=== PATIENT | female | born 1960 | race Caucasian/White ===

== ENCOUNTER 2023-01-12 10:54 | Inpatient (IN) | payer OTHER ==
[2023-01-12] MEDS ORDERED: Docusate Sodium 100 MG Cap PO PRN ×2 (15:08→15:20)
[2023-01-12] MEDS ORDERED: Calcium Carbonate 500 MG Tab.Chew PO PRN (15:08)
[2023-01-12] MEDS ORDERED: Sodium Chloride 0.9% 10 ML Syringe FLUSH PRN (15:08)
[2023-01-12] MEDS ORDERED: Acetaminophen 325 MG Tab PO PRN (15:08)
[2023-01-12] MEDS ORDERED: Furosemide 20 MG Tab PO PRN (15:20)
[2023-01-12] MEDS ORDERED: Polyethylene Glycol 3350 Powder 17 GM Packet PO PRN (15:20)
[2023-01-12] MEDS ORDERED: Loratadine 10 MG Tab PO PRN (15:20)
[2023-01-12 15:33] LABS: BASOPHILS ABSOLUTE AUTO 0.01 10^3/uL (0.00-0.10); BASOPHILS PERCENT AUTO 0.2 % (0.0-1.0); EOSINOPHILS ABSOLUTE AUTO 0.09 10^3/uL (0.10-0.30); EOSINOPHILS PERCENT AUTO 1.7 % (1.0-3.0); HEMATOCRIT 33.6 % (37.0-47.0); HEMOGLOBIN 11.1 g/dL (12.0-16.0); IMMATURE GRAN ABSOLUTE AUTO 0.01 10^3/uL (0.00-0.50); IMMATURE GRAN PERCENT AUTO 0.2 % (0.0-5.0); LYMPHOCYTES ABSOLUTE AUTO 0.63 10^3/uL (1.00-4.00); MEAN CORPUSCULAR HEMOGLOBIN 29.8 pg (27.0-31.0); MEAN CORPUSCULAR VOLUME 90.1 fL (82.0-92.0); MEAN PLATELET VOLUME 10.3 fL (7.4-10.4); MONOCYTES PERCENT AUTO 5.7 % (2.0-8.0); NEUTROPHILS ABSOLUTE AUTO 4.21 10^3/uL (2.50-7.00); NEUTROPHILS PERCENT AUTO 80.2 % (50.0-70.0); PLATELET COUNT,PLT 234 10^3/uL (150-400); RED BLOOD CELL COUNT 3.73 10^6/uL (3.80-5.50); RED CELL DISTRIBUTION WIDTH 13.2 % (11.5-14.5); WHITE BLOOD CELL COUNT,WBC 5.25 10^3/uL (5.00-10.00)
[2023-01-12] MEDS ORDERED: Carbidopa/Levodopa 25-100 MG Tab.ER PO PRN (15:37)
[2023-01-12] MEDS ORDERED: Acetaminophen 500 MG Tab PO PRN (15:39)
[2023-01-12 15:50] LABS: ALBUMIN 2.88 g/dL (3.40-5.00); ALKALINE PHOSPHATASE 120 U/L (46-116); ANION GAP 9.7 mmol/L (5-15); ASPARTATE AMNIOTRANSFERASE,AST 12 U/L (15-37); BILIRUBIN TOTAL 0.9 mg/dL (0.2-1.0); BLOOD UREA NITROGEN,BUN 7 mg/dL (7-18); CALCIUM 8.1 mg/dL (8.7-10.3); CARBON DIOXIDE,CO2 32.3 mmol/L (21.0-32.0); CHLORIDE,CL 98 mmol/L (98-107); EST CRCL DRUG DOSING (CG) 82.72 mL/min; GLUCOSE RANDOM 95 mg/dL (70-140); MAGNESIUM 1.8 mg/dL (1.8-2.4); PROTEIN TOTAL,TP 6.4 g/dL (6.4-8.2); SODIUM,NA 136 mmol/L (136-145)
[2023-01-12 16:00] LABS: ALANINE AMINOTRANSFERASE,ALT < 6 U/L (14-63); ESTIMATED GFR 105 mL/min (>=60)
[2023-01-12] MEDS: Carbidopa/Levodopa 25-100 MG Tab PO SCH ×3 (16:12→21:54)
[2023-01-12] MEDS ORDERED: Iopamidol 755 Mg/ML 100 ML Bottle IV ONE (19:49)
[2023-01-12] MEDS ORDERED: Sodium Chloride 0.9% 100 ML IV SCH (20:00)
[2023-01-12 20:05] LABS: B-TYPE NATRIURETIC PEPTIDE,BNP 67 pg/mL (0-100)
[2023-01-12] MEDS: PEG 400/Hypromellose/Glycerin 15 ML Bottle EYEBOTH SCH (21:07)
[2023-01-12] MEDS: Enoxaparin 40 MG/0.4 ML Syringe SUBCUT SCH (21:07)
[2023-01-12] MEDS: QUEtiapine 25 MG Tab PO SCH (21:07)
[2023-01-12] MEDS: Sennosides/Docusate Sodium 50-8.6 MG Tab PO SCH (21:07)
[2023-01-12] MEDS: Carbidopa/Levodopa 25-100 MG Tab.ER PO SCH (21:08)
[2023-01-13] MEDS: Levothyroxine 100 MCG Tab PO SCH ×2 (05:58→06:35)
[2023-01-13] MEDS: Donepezil 10 MG Tab PO SCH (08:53)
[2023-01-13] MEDS: Cholecalciferol (Vitamin D3) 25 MCG Tab PO SCH (08:53)
[2023-01-13] MEDS: Calcium Citrate/Vitamin D3 315 MG-250 Unit Tab PO SCH (08:53)
[2023-01-13] MEDS: PARoxetine 20 MG Tab PO SCH (08:53)
[2023-01-13] MEDS: Sennosides/Docusate Sodium 50-8.6 MG Tab PO SCH ×2 (08:53→20:53)
[2023-01-13] MEDS: Carbidopa/Levodopa 25-100 MG Tab PO SCH ×5 (08:53→21:36)
[2023-01-13] MEDS: PEG 400/Hypromellose/Glycerin 15 ML Bottle EYEBOTH SCH ×3 (08:55→20:54)
[2023-01-13] MEDS ORDERED: Metoprolol Succinate 25 MG Tab.ER PO SCH (09:00)
[2023-01-13] MEDS ORDERED: Aspirin 325 MG Tab.EC PO SCH (09:00)
[2023-01-13] MEDS: Ondansetron 4 MG Tab.DIS PO PRN (12:56)
[2023-01-13] MEDS: QUEtiapine 25 MG Tab PO SCH ×2 (14:59→20:53)
[2023-01-13] MEDS: Carbidopa/Levodopa 25-100 MG Tab.ER PO SCH (20:53)
[2023-01-13] MEDS: Cyclobenzaprine 5 MG Tab PO PRN (20:54)
[2023-01-13] MEDS: Enoxaparin 40 MG/0.4 ML Syringe SUBCUT SCH (20:54)
[2023-01-14] MEDS: Carbidopa/Levodopa 25-100 MG Tab PO SCH ×5 (07:37→22:08)
[2023-01-14] MEDS: Levothyroxine 100 MCG Tab PO SCH (07:38)
[2023-01-14] MEDS ORDERED: KETOCONAZOLE TOP SCH (09:00)
[2023-01-14] MEDS ORDERED: amLODIPine 2.5 MG Tab PO SCH (09:00)
[2023-01-14] MEDS: PARoxetine 20 MG Tab PO SCH (09:17)
[2023-01-14] MEDS: Donepezil 10 MG Tab PO SCH (09:17)
[2023-01-14] MEDS: Cholecalciferol (Vitamin D3) 25 MCG Tab PO SCH (09:17)
[2023-01-14] MEDS: Calcium Citrate/Vitamin D3 315 MG-250 Unit Tab PO SCH (09:18)
[2023-01-14] MEDS: PEG 400/Hypromellose/Glycerin 15 ML Bottle EYEBOTH SCH ×3 (09:20→21:33)
[2023-01-14] MEDS: Sennosides/Docusate Sodium 50-8.6 MG Tab PO SCH ×2 (09:20→21:32)
[2023-01-14] MEDS: TRIAMCINOLONE ACETONIDE 0.025% TOP SCH (10:30)
[2023-01-14] MEDS: Ondansetron 4 MG Tab.DIS PO PRN ×2 (12:21→18:05)
[2023-01-14] MEDS: QUEtiapine 25 MG Tab PO SCH ×2 (15:20→21:32)
[2023-01-14] MEDS: KETOCONAZOLE TOP SCH (21:32)
[2023-01-14] MEDS: Carbidopa/Levodopa 25-100 MG Tab.ER PO SCH (21:32)
[2023-01-14] MEDS: Enoxaparin 40 MG/0.4 ML Syringe SUBCUT SCH (21:32)
[2023-01-15] MEDS: Carbidopa/Levodopa 25-100 MG Tab.ER PO PRN (03:55)
[2023-01-15] MEDS: Levothyroxine 100 MCG Tab PO SCH ×2 (06:06→06:36)
[2023-01-15] MEDS: Carbidopa/Levodopa 25-100 MG Tab PO SCH ×5 (07:26→21:42)
[2023-01-15] MEDS: Calcium Citrate/Vitamin D3 315 MG-250 Unit Tab PO SCH (08:40)
[2023-01-15] MEDS: PARoxetine 20 MG Tab PO SCH (08:40)
[2023-01-15] MEDS: Donepezil 10 MG Tab PO SCH (08:41)
[2023-01-15] MEDS: Sennosides/Docusate Sodium 50-8.6 MG Tab PO SCH ×2 (08:41→21:28)
[2023-01-15] MEDS: Cholecalciferol (Vitamin D3) 25 MCG Tab PO SCH (08:41)
[2023-01-15] MEDS: PEG 400/Hypromellose/Glycerin 15 ML Bottle EYEBOTH SCH ×3 (08:55→21:50)
[2023-01-15] MEDS: TRIAMCINOLONE ACETONIDE 0.025% TOP SCH (09:59)
[2023-01-15] MEDS: Ondansetron 4 MG Tab.DIS PO PRN (14:09)
[2023-01-15] MEDS: QUEtiapine 25 MG Tab PO SCH ×2 (15:13→21:42)
[2023-01-15] MEDS: Enoxaparin 40 MG/0.4 ML Syringe SUBCUT SCH (21:40)
[2023-01-15] MEDS: Carbidopa/Levodopa 25-100 MG Tab.ER PO SCH (21:43)
[2023-01-15] MEDS: KETOCONAZOLE TOP SCH (21:51)
[2023-01-16] MEDS: Levothyroxine 100 MCG Tab PO SCH (07:07)
[2023-01-16] MEDS: Carbidopa/Levodopa 25-100 MG Tab PO SCH ×5 (07:37→21:36)
[2023-01-16] MEDS: Calcium Citrate/Vitamin D3 315 MG-250 Unit Tab PO SCH (08:39)
[2023-01-16] MEDS: Sennosides/Docusate Sodium 50-8.6 MG Tab PO SCH ×2 (08:39→21:33)
[2023-01-16] MEDS: PARoxetine 20 MG Tab PO SCH (08:39)
[2023-01-16] MEDS: Donepezil 10 MG Tab PO SCH (08:40)
[2023-01-16] MEDS: Cholecalciferol (Vitamin D3) 25 MCG Tab PO SCH (08:41)
[2023-01-16] MEDS: PEG 400/Hypromellose/Glycerin 15 ML Bottle EYEBOTH SCH ×3 (08:51→21:33)
[2023-01-16] MEDS: TRIAMCINOLONE ACETONIDE 0.025% TOP SCH (08:51)
[2023-01-16] MEDS ORDERED: amLODIPine 2.5 MG Tab PO SCH (09:00)
[2023-01-16] MEDS: QUEtiapine 25 MG Tab PO SCH ×2 (15:39→21:36)
[2023-01-16] MEDS: Enoxaparin 40 MG/0.4 ML Syringe SUBCUT SCH (21:34)
[2023-01-16] MEDS: KETOCONAZOLE TOP SCH (21:34)
[2023-01-16] MEDS: Carbidopa/Levodopa 25-100 MG Tab.ER PO SCH (21:35)
[2023-01-17] MEDS: Carbidopa/Levodopa 25-100 MG Tab.ER PO PRN (03:18)
[2023-01-17] MEDS: Levothyroxine 100 MCG Tab PO SCH ×2 (06:04→06:29)
[2023-01-17] MEDS: Carbidopa/Levodopa 25-100 MG Tab PO SCH ×5 (07:33→21:13)
[2023-01-17] MEDS: TRIAMCINOLONE ACETONIDE 0.025% TOP SCH (08:25)
[2023-01-17] MEDS: PEG 400/Hypromellose/Glycerin 15 ML Bottle EYEBOTH SCH ×3 (08:25→21:12)
[2023-01-17] MEDS: Sennosides/Docusate Sodium 50-8.6 MG Tab PO SCH ×2 (09:13→20:46)
[2023-01-17] MEDS: Calcium Citrate/Vitamin D3 315 MG-250 Unit Tab PO SCH (09:13)
[2023-01-17] MEDS: PARoxetine 20 MG Tab PO SCH (09:14)
[2023-01-17] MEDS: Donepezil 10 MG Tab PO SCH (09:14)
[2023-01-17] MEDS: Cholecalciferol (Vitamin D3) 25 MCG Tab PO SCH (09:15)
[2023-01-17] MEDS: amLODIPine 5 MG Tab PO SCH (09:15)
[2023-01-17] MEDS: Ondansetron 4 MG Tab.DIS PO PRN (12:03)
[2023-01-17] MEDS ORDERED: Loperamide 2 MG Cap PO PRN (13:43)
[2023-01-17] MEDS ORDERED: Menthol/Zinc Oxide Ointment 113 GM Tube TOP PRN (14:14)
[2023-01-17] MEDS: QUEtiapine 25 MG Tab PO SCH ×2 (15:17→21:13)
[2023-01-17] MEDS: KETOCONAZOLE TOP SCH (21:12)
[2023-01-17] MEDS: Enoxaparin 40 MG/0.4 ML Syringe SUBCUT SCH (21:13)
[2023-01-17] MEDS: Carbidopa/Levodopa 25-100 MG Tab.ER PO SCH (21:13)
[2023-01-18] MEDS: Carbidopa/Levodopa 25-100 MG Tab.ER PO PRN (02:57)
[2023-01-18] MEDS: Levothyroxine 100 MCG Tab PO SCH (06:05)
[2023-01-18] MEDS: Carbidopa/Levodopa 25-100 MG Tab PO SCH ×5 (07:32→22:20)
[2023-01-18] MEDS: PARoxetine 20 MG Tab PO SCH (08:53)
[2023-01-18] MEDS: amLODIPine 5 MG Tab PO SCH (08:53)
[2023-01-18] MEDS: Donepezil 10 MG Tab PO SCH (08:53)
[2023-01-18] MEDS: Calcium Citrate/Vitamin D3 315 MG-250 Unit Tab PO SCH (08:53)
[2023-01-18] MEDS: Cholecalciferol (Vitamin D3) 25 MCG Tab PO SCH (08:53)
[2023-01-18] MEDS: Sennosides/Docusate Sodium 50-8.6 MG Tab PO SCH (08:54)
[2023-01-18] MEDS: TRIAMCINOLONE ACETONIDE 0.025% TOP SCH (09:04)
[2023-01-18] MEDS: PEG 400/Hypromellose/Glycerin 15 ML Bottle EYEBOTH SCH ×3 (09:04→22:20)
[2023-01-18] MEDS: Ondansetron 4 MG Tab.DIS PO PRN (12:04)
[2023-01-18] MEDS: QUEtiapine 25 MG Tab PO SCH ×2 (15:13→21:42)
[2023-01-18] MEDS: Enoxaparin 40 MG/0.4 ML Syringe SUBCUT SCH (21:42)
[2023-01-18] MEDS: Carbidopa/Levodopa 25-100 MG Tab.ER PO SCH (21:42)
[2023-01-18] MEDS: KETOCONAZOLE TOP SCH (21:44)
[2023-01-19] MEDS: Carbidopa/Levodopa 25-100 MG Tab.ER PO PRN (02:51)
[2023-01-19] MEDS: Levothyroxine 100 MCG Tab PO SCH (06:11)
[2023-01-19] MEDS: Carbidopa/Levodopa 25-100 MG Tab PO SCH ×5 (07:26→22:05)
[2023-01-19] MEDS: Calcium Citrate/Vitamin D3 315 MG-250 Unit Tab PO SCH (09:25)
[2023-01-19] MEDS: TRIAMCINOLONE ACETONIDE 0.025% TOP SCH (09:25)
[2023-01-19] MEDS: PEG 400/Hypromellose/Glycerin 15 ML Bottle EYEBOTH SCH ×3 (09:25→21:02)
[2023-01-19] MEDS: Cholecalciferol (Vitamin D3) 25 MCG Tab PO SCH (09:26)
[2023-01-19] MEDS: PARoxetine 20 MG Tab PO SCH (09:26)
[2023-01-19] MEDS: Donepezil 10 MG Tab PO SCH (09:26)
[2023-01-19] MEDS: amLODIPine 5 MG Tab PO SCH (09:37)
[2023-01-19] MEDS: QUEtiapine 25 MG Tab PO SCH ×2 (15:08→20:54)
[2023-01-19] MEDS: Enoxaparin 40 MG/0.4 ML Syringe SUBCUT SCH (20:54)
[2023-01-19] MEDS: Carbidopa/Levodopa 25-100 MG Tab.ER PO SCH (20:54)
[2023-01-19] MEDS: KETOCONAZOLE TOP SCH (21:03)
[2023-01-20] MEDS: Carbidopa/Levodopa 25-100 MG Tab.ER PO PRN (03:25)
[2023-01-20] MEDS: Levothyroxine 100 MCG Tab PO SCH (06:21)
[2023-01-20] MEDS: Carbidopa/Levodopa 25-100 MG Tab PO SCH ×5 (07:21→22:02)
[2023-01-20] MEDS: Aspirin 325 MG Tab.EC PO SCH (08:27)
[2023-01-20] MEDS: Cholecalciferol (Vitamin D3) 25 MCG Tab PO SCH (08:27)
[2023-01-20] MEDS: PARoxetine 20 MG Tab PO SCH (08:27)
[2023-01-20] MEDS: PEG 400/Hypromellose/Glycerin 15 ML Bottle EYEBOTH SCH ×3 (08:28→21:25)
[2023-01-20] MEDS: Donepezil 10 MG Tab PO SCH (08:28)
[2023-01-20] MEDS: TRIAMCINOLONE ACETONIDE 0.025% TOP SCH (08:28)
[2023-01-20] MEDS: amLODIPine 5 MG Tab PO SCH (09:59)
[2023-01-20] MEDS: Calcium Citrate/Vitamin D3 315 MG-250 Unit Tab PO SCH (10:01)
[2023-01-20] MEDS: QUEtiapine 25 MG Tab PO SCH ×2 (15:33→21:13)
[2023-01-20] MEDS: Carbidopa/Levodopa 25-100 MG Tab.ER PO SCH (21:13)
[2023-01-20] MEDS: Enoxaparin 40 MG/0.4 ML Syringe SUBCUT SCH (21:13)
[2023-01-20] MEDS: Cyclobenzaprine 5 MG Tab PO PRN (21:18)
[2023-01-20] MEDS: KETOCONAZOLE TOP SCH (21:25)
[2023-01-21] MEDS: Carbidopa/Levodopa 25-100 MG Tab.ER PO PRN (03:26)
[2023-01-21] MEDS: Levothyroxine 100 MCG Tab PO SCH (06:20)
[2023-01-21] MEDS: Carbidopa/Levodopa 25-100 MG Tab PO SCH ×5 (07:26→22:00)
[2023-01-21] MEDS: Aspirin 325 MG Tab.EC PO SCH (10:07)
[2023-01-21] MEDS: Calcium Citrate/Vitamin D3 315 MG-250 Unit Tab PO SCH (10:07)
[2023-01-21] MEDS: PARoxetine 20 MG Tab PO SCH (10:07)
[2023-01-21] MEDS: Donepezil 10 MG Tab PO SCH (10:07)
[2023-01-21] MEDS: Cholecalciferol (Vitamin D3) 25 MCG Tab PO SCH (10:08)
[2023-01-21] MEDS: PEG 400/Hypromellose/Glycerin 15 ML Bottle EYEBOTH SCH ×3 (10:08→22:29)
[2023-01-21] MEDS: TRIAMCINOLONE ACETONIDE 0.025% TOP SCH (10:08)
[2023-01-21] MEDS: amLODIPine 5 MG Tab PO SCH (10:14)
[2023-01-21] MEDS: Cyclobenzaprine 5 MG Tab PO PRN (14:05)
[2023-01-21] MEDS: QUEtiapine 25 MG Tab PO SCH ×2 (14:59→22:28)
[2023-01-21] MEDS: oxyCODONE 5 MG Tab PO PRN ×2 (15:00→22:50)
[2023-01-21 15:40] LABS: HEMATOCRIT 27.3 % (37.0-47.0); HEMOGLOBIN 9.2 g/dL (12.0-16.0); MEAN CORPUSCULAR HEMOGLOBIN 29.6 pg (27.0-31.0); MEAN CORPUSCULAR HGB CONC 33.7 g/dL (32.0-36.0); MEAN CORPUSCULAR VOLUME 87.8 fL (82.0-92.0); MEAN PLATELET VOLUME 10.3 fL (7.4-10.4); PLATELET COUNT,PLT 308 10^3/uL (150-400); RED BLOOD CELL COUNT 3.11 10^6/uL (3.80-5.50); RED CELL DISTRIBUTION WIDTH 13.6 % (11.5-14.5); WHITE BLOOD CELL COUNT,WBC 10.68 10^3/uL (5.00-10.00)
[2023-01-21 15:57] LABS: ALBUMIN 2.94 g/dL (3.40-5.00); ALKALINE PHOSPHATASE 132 U/L (46-116); ANION GAP 10.5 mmol/L (5-15); ASPARTATE AMNIOTRANSFERASE,AST 16 U/L (15-37); BILIRUBIN TOTAL 1.1 mg/dL (0.2-1.0); BLOOD UREA NITROGEN,BUN 21 mg/dL (7-18); CALCIUM 8.4 mg/dL (8.7-10.3); CARBON DIOXIDE,CO2 32.8 mmol/L (21.0-32.0); CHLORIDE,CL 97 mmol/L (98-107); CREATININE 0.53 mg/dL (0.51-1.17); EST CRCL DRUG DOSING (CG) 78.04 mL/min; GLUCOSE RANDOM 113 mg/dL (70-140); POTASSIUM,K 3.3 mmol/L (3.5-5.1); PROTEIN TOTAL,TP 6.5 g/dL (6.4-8.2); SODIUM,NA 137 mmol/L (136-145)
[2023-01-21 15:58] LABS: ALANINE AMINOTRANSFERASE,ALT < 6 U/L (14-63); ESTIMATED GFR 104 mL/min (>=60)
[2023-01-21 16:37] LABS: APPEARANCE,URINE CLOUDY (CLEAR); BILIRUBIN,URINE SMALL (NEGATIVE); COLOR,URINE DARK YELLOW (YELLOW); GLUCOSE,URINE 100 mg/dL (NEGATIVE); KETONES,URINE 15 mg/dL (NEGATIVE); LEUKOCYTE ESTERASE,URINE NEGATIVE (NEGATIVE); NITRITE,URINE POSITIVE (NEGATIVE); OCCULT BLOOD,URINE MODERATE (NEGATIVE); PH,URINE 5.5 (5.0-9.0); PROTEIN,URINE 100 mg/dL (NEGATIVE)
[2023-01-21 16:48] LABS: BACTERIA,URINE FEW /HPF (NONE TO FEW); EPITHELIAL CELLS,URINE RARE /LPF; MUCUS,URINE FEW /LPF (NEGATIVE)
[2023-01-21 16:50] LABS: OTHER CRYSTALS,URINE FEW /HPF
[2023-01-21] MEDS ORDERED: Potassium Chloride 10 MEQ Tab.ER PO ONE (17:33)
[2023-01-21] MEDS ORDERED: Levofloxacin 500 MG Tab PO SCH (18:00)
[2023-01-21] MEDS ORDERED: Sodium Chloride 0.9% 1,000 ML IV ONE ×2 (20:31→23:31)
[2023-01-21 20:42] LABS: BASOPHILS ABSOLUTE AUTO 0.02 10^3/uL (0.00-0.10); BASOPHILS PERCENT AUTO 0.2 % (0.0-1.0); EOSINOPHILS ABSOLUTE AUTO 0.01 10^3/uL (0.10-0.30); EOSINOPHILS PERCENT AUTO 0.1 % (1.0-3.0); HEMATOCRIT 26.1 % (37.0-47.0); HEMOGLOBIN 8.7 g/dL (12.0-16.0); IMMATURE GRAN ABSOLUTE AUTO 0.07 10^3/uL (0.00-0.50); IMMATURE GRAN PERCENT AUTO 0.7 % (0.0-5.0); LYMPHOCYTES PERCENT AUTO 6.6 % (20.0-40.0); MEAN CORPUSCULAR HEMOGLOBIN 29.4 pg (27.0-31.0); MEAN CORPUSCULAR HGB CONC 33.3 g/dL (32.0-36.0); MEAN CORPUSCULAR VOLUME 88.2 fL (82.0-92.0); MEAN PLATELET VOLUME 10.5 fL (7.4-10.4); MONOCYTES ABSOLUTE AUTO 0.99 10^3/uL (0.10-0.80); MONOCYTES PERCENT AUTO 9.4 % (2.0-8.0); NEUTROPHILS ABSOLUTE AUTO 8.79 10^3/uL (2.50-7.00); PLATELET COUNT,PLT 288 10^3/uL (150-400); RED BLOOD CELL COUNT 2.96 10^6/uL (3.80-5.50); RED CELL DISTRIBUTION WIDTH 13.6 % (11.5-14.5); WHITE BLOOD CELL COUNT,WBC 10.58 10^3/uL (5.00-10.00)
[2023-01-21] MEDS ORDERED: Aspirin 81 MG Tab.Chew PO ONE (20:49)
[2023-01-21] MEDS ORDERED: Vancomycin 2 GM in Sodium Chloride 0.9% 500 ML IV ONE (21:00)
[2023-01-21 21:03] LABS: LACTIC ACID 1.3 mmol/L (0.4-2.0)
[2023-01-21 21:07] LABS: ALANINE AMINOTRANSFERASE,ALT < 6 U/L (14-63); ALBUMIN 2.79 g/dL (3.40-5.00); ALKALINE PHOSPHATASE 128 U/L (46-116); ANION GAP 10.6 mmol/L (5-15); ASPARTATE AMNIOTRANSFERASE,AST 14 U/L (15-37); BILIRUBIN TOTAL 1.1 mg/dL (0.2-1.0); BLOOD UREA NITROGEN,BUN 25 mg/dL (7-18); CALCIUM 8.3 mg/dL (8.7-10.3); CARBON DIOXIDE,CO2 31.9 mmol/L (21.0-32.0); CHLORIDE,CL 98 mmol/L (98-107); CREATININE 0.65 mg/dL (0.51-1.17); EST CRCL DRUG DOSING (CG) 63.63 mL/min; ESTIMATED GFR 99 mL/min (>=60); GLUCOSE RANDOM 119 mg/dL (70-140); POTASSIUM,K 3.5 mmol/L (3.5-5.1); PROTEIN TOTAL,TP 6.3 g/dL (6.4-8.2); SODIUM,NA 137 mmol/L (136-145)
[2023-01-21 21:27] LABS: INFLUENZA A NAA NEGATIVE (NEGATIVE); INFLUENZA B NAA NEGATIVE (NEGATIVE); RESPIRATORY SYNCYTIAL VIR NAA NEGATIVE (NEGATIVE)
[2023-01-21 21:29] LABS: CORONAVIRUS COVID-19 NAA POSITIVE (NEGATIVE)
[2023-01-21] MEDS ORDERED: Iopamidol 755 Mg/ML 100 ML Bottle IV ONE (21:42)
[2023-01-21] MEDS ORDERED: Sodium Chloride 0.9% 50 ML IV SCH (21:45)
[2023-01-21] MEDS ORDERED: REMDESIVIR 200 MG in Sodium Chloride 0.9% 100 ML IV ONE (22:00)
[2023-01-21] MEDS: Piperacillin/Tazobactam 4.5 GM in Sodium Chloride 0.9% 100 ML IV SCH (22:11)
[2023-01-21] MEDS ORDERED: LORazepam 2 MG/ML SDV IVPUSH ONE (22:22)
[2023-01-21] MEDS: Carbidopa/Levodopa 25-100 MG Tab.ER PO SCH (22:28)
[2023-01-21] MEDS: Enoxaparin 40 MG/0.4 ML Syringe SUBCUT SCH (22:28)
[2023-01-21] MEDS: KETOCONAZOLE TOP SCH (22:28)
[2023-01-21] MEDS ORDERED: Sodium Chloride 0.9% 100 ML IV SCH (23:00)
[2023-01-21] MEDS ORDERED: Sodium Chloride 0.9% 250 ML IV SCH (23:00)
[2023-01-22] MEDS: Piperacillin/Tazobactam 4.5 GM in Sodium Chloride 0.9% 100 ML IV SCH ×2 (06:03→11:47)
[2023-01-22] MEDS: Levothyroxine 100 MCG Tab PO SCH (06:04)
[2023-01-22 08:32] LABS: A/G RATIO 0.76; ALBUMIN 2.25 g/dL (3.40-5.00); ALKALINE PHOSPHATASE 102 U/L (46-116); ASPARTATE AMNIOTRANSFERASE,AST 12 U/L (15-37); BILIRUBIN DIRECT 0.3 mg/dL (0.0-0.2); BILIRUBIN INDIRECT 0.4 mg/dL; BILIRUBIN TOTAL 0.7 mg/dL (0.2-1.0); PROTEIN TOTAL,TP 5.2 g/dL (6.4-8.2)
[2023-01-22 08:33] LABS: ALANINE AMINOTRANSFERASE,ALT < 6 U/L (14-63)
[2023-01-22] MEDS ORDERED: VANCOmycin 1 GM/200 ML 1 GM in Premix Bag 1 BAG IV SCH (09:00)
[2023-01-22] MEDS: Carbidopa/Levodopa 25-100 MG Tab PO SCH ×2 (09:19→11:40)
[2023-01-22] MEDS: PEG 400/Hypromellose/Glycerin 15 ML Bottle EYEBOTH SCH (09:55)
[2023-01-22] MEDS: TRIAMCINOLONE ACETONIDE 0.025% TOP SCH (09:55)
[2023-01-22] MEDS ORDERED: Sodium Chloride 0.9% 500 ML IV SCH (10:15)
[2023-01-22 10:39] LABS: HEMATOCRIT 22.7 % (37.0-47.0); HEMOGLOBIN 7.3 g/dL (12.0-16.0); MEAN CORPUSCULAR HEMOGLOBIN 29.3 pg (27.0-31.0); MEAN CORPUSCULAR HGB CONC 32.2 g/dL (32.0-36.0); MEAN CORPUSCULAR VOLUME 91.2 fL (82.0-92.0); MEAN PLATELET VOLUME 11.3 fL (7.4-10.4); PLATELET COUNT,PLT 232 10^3/uL (150-400); RED BLOOD CELL COUNT 2.49 10^6/uL (3.80-5.50); WHITE BLOOD CELL COUNT,WBC 7.52 10^3/uL (5.00-10.00)
[2023-01-22] MEDS: Calcium Citrate/Vitamin D3 315 MG-250 Unit Tab PO SCH (10:45)
[2023-01-22] MEDS: Donepezil 10 MG Tab PO SCH (10:45)
[2023-01-22] MEDS: Cholecalciferol (Vitamin D3) 25 MCG Tab PO SCH (10:46)
[2023-01-22] MEDS: PARoxetine 20 MG Tab PO SCH (10:46)
[2023-01-22 10:48] LABS: ALBUMIN 2.25 g/dL (3.40-5.00); ALKALINE PHOSPHATASE 103 U/L (46-116); ANION GAP 12.3 mmol/L (5-15); ASPARTATE AMNIOTRANSFERASE,AST 12 U/L (15-37); BILIRUBIN TOTAL 0.6 mg/dL (0.2-1.0); BLOOD UREA NITROGEN,BUN 19 mg/dL (7-18); CALCIUM 7.5 mg/dL (8.7-10.3); CARBON DIOXIDE,CO2 28.8 mmol/L (21.0-32.0); CHLORIDE,CL 103 mmol/L (98-107); CREATININE 0.57 mg/dL (0.51-1.17); EST CRCL DRUG DOSING (CG) 72.56 mL/min; GLUCOSE RANDOM 107 mg/dL (70-140); POTASSIUM,K 3.1 mmol/L (3.5-5.1); PROTEIN TOTAL,TP 5.2 g/dL (6.4-8.2); SODIUM,NA 141 mmol/L (136-145)
[2023-01-22 10:55] LABS: ALANINE AMINOTRANSFERASE,ALT < 6 U/L (14-63); ESTIMATED GFR 102 mL/min (>=60)
[2023-01-22 15:41] VITALS: BP 99/55; PULSE 88
[2023-01-22] MEDS ORDERED: REMDESIVIR 100 MG in Sodium Chloride 0.9% 100 ML IV SCH (22:00)
== END 2023-01-22 14:54 | DRG 947 ==
LOC: KA.MS 14:11
PROVIDERS: ADMIT Family Medicine; ATTEND Family Medicine
PROC: XW033E5 Introduction of Remdesivir Anti-infective into Peripheral Vein, Percutaneous Approach, New Technology Group 5 (ICD-10-PCS; principal; 2023-01-22)
DX: R53.81 Other malaise (principal); U07.1 COVID-19; G90.3 Multi-system degeneration of the autonomic nervous system; Z68.42 Body mass index [BMI] 45.0-49.9, adult; N39.0 Urinary tract infection, site not specified; G20.A1 Parkinson's disease without dyskinesia, without mention of fluctuations; E66.01 Morbid (severe) obesity due to excess calories; I10 Essential (primary) hypertension; F02.80 Dementia in other diseases classified elsewhere, unspecified severity, without behavioral disturbance, psychotic disturbance, mood disturbance, and anxiety; F41.9 Anxiety disorder, unspecified; R13.12 Dysphagia, oropharyngeal phase; G25.81 Restless legs syndrome; I95.9 Hypotension, unspecified; Z79.899 Other long term (current) drug therapy; Z91.018 Allergy to other foods; Z79.82 Long term (current) use of aspirin; Z98.890 Other specified postprocedural states
CPT/HCPCS: 0241U; 36415; 71045; 71275; 74177; 80053; 80076; 80202; 81001; 83605; 83690; 83735; 83880; 84145; 84484; 85025; 85027; 87040; 87070; 87075; 87086; 87088; 87205; 92610-GN; 93005; 97110-GP; 97161-GP; 97530-GO; A9270-GY; J1650; J2060; J2543; J3370; J3490; J7030; J7040; J7050; Q3014; Q9967